=== PATIENT | female | born 1965 | race Caucasian/White ===

== ENCOUNTER 2019-03-22 12:09 | Day surgery (SDC) | payer OTHER ==
[~2019-03-22] VITALS: Ht 167.6 cm; Wt 60.4 kg
[~2019-03-22 12:09] MED LIST: ibuprofen; sumatriptan; zoloft
[2019-03-22 14:30] VITALS: BP 135/73; PULSE 53; RESP 16
[2019-03-22 14:33] VITALS: Ht 167.6 cm; Wt 60.4 kg
[2019-03-22] MEDS ORDERED: LIDOCAINE 2% (SDV) 5 ML INJ ONE (15:20)
[2019-03-22] MEDS ORDERED: FENTAnyl 50 MCG/ML VIAL ONE (15:20)
[2019-03-22] MEDS ORDERED: PROPOFOL 40 ML ONE (15:20)
[2019-03-22] MEDS ORDERED: PROPOFOL 200 MG INJ ONE (15:20)
[2019-03-22 15:30] VITALS: BP 131/71; PULSE 48; RESP 16
[2019-03-22 15:36] VITALS: BP 119/68; PULSE 48; RESP 19
[2019-03-22 15:45] VITALS: BP 118/71; PULSE 54; RESP 14
[2019-03-22 16:00] VITALS: BP 127/69; PULSE 58; RESP 20
== END 2019-03-22 18:07 | disposition home or self-care (01) ==
LOC: GIL 12:09
PROVIDERS: ATTEND Internal Medicine Gastroenterology
DX: K29.70 Gastritis, unspecified, without bleeding (principal)
CPT/HCPCS: 43239; 84703; 88305; 88312; J3010; Z7610